=== PATIENT | female | born 1955 | race Caucasian/White ===

== ENCOUNTER → 2020-12-11 | Outpatient (CLI) | payer BC ==
--- NOTE | 2020-12-11 16:15 | Diagnostic Imaging Report ---
EXAMINATION: Left knee MRI without contrast, 12/11/2020. TECHNIQUE: Multiplanar, multisequence [id number] MRI of the left lower extremity was accomplished. INDICATION: Injury to the knee. Continued pain for the last two weeks. FINDINGS: There is diffuse T2 hyperintensity surrounding and within the MCL. A partial tear of the proximal fibers of the MCL is noted with adjacent edema in the medial border of the medial femoral condyle, likely reactive. There is no retraction or complete discontinuity of the MCL. The lateral collateral ligamentous complex is intact. The ACL and the PCL are intact. The extensor mechanism is intact. The medial meniscus contains myxoid degeneration posteriorly but appears intact. The lateral meniscus is intact. Cartilage within the medial and lateral joint spaces is preserved. Patellofemoral cartilage is maintained. There is a small joint effusion. IMPRESSION: 1. Findings of type III MCL sprain with a small partial tear of its proximal fibers. No discontinuity or retraction appreciated. Remaining ligaments and tendons intact. 2. Menisci intact. Dictated by: Dictated on workstation # [id number]
== END ==
LOC: RAD 14:22
PROVIDERS: ATTEND Internal Medicine
DX: S83.412A Sprain of medial collateral ligament of left knee, initial encounter (principal); X58.XXXA Exposure to other specified factors, initial encounter
CPT/HCPCS: 73721